=== PATIENT | male | born 1980 | race American Indian/Alaskan Native ===

== ENCOUNTER 2022-06-14 04:02 | Inpatient (IN) | payer MEDICAID ==
[2022-06-14] MEDS ORDERED: Albuterol 0.083% 2.5 MG/3 ML Neb Soln NEB PRN (04:42)
[2022-06-14] MEDS ORDERED: Nicotine 14 MG/24 Hr Patch TRDERM PRN (04:42)
[2022-06-14] MEDS ORDERED: Magnesium Hydroxide 400 MG/5 ML Susp 30 ML Cup PO PRN (04:42)
[2022-06-14] MEDS ORDERED: Ondansetron 4 MG/2 ML SDV IV PRN (04:42)
[2022-06-14] MEDS ORDERED: Ondansetron 4 MG Tab.DIS PO PRN (04:42)
[2022-06-14] MEDS: Sodium Chloride 0.9% 1,000 ML IV SCH ×2 (05:51→17:58)
[2022-06-14] MEDS ORDERED: Piperacillin/Tazobactam 3.375 GM in Sodium Chloride 0.9% 50 ML IV SCH (06:00)
[2022-06-14] MEDS: Insulin Lispro 100 Unit/ML 3 ML KwikPen SUBCUT SCH ×4 (07:12→22:39)
[2022-06-14 09:48] LABS: HEMOGLOBIN A1C 4.9 % (4.5-6.2)
[2022-06-14] MEDS: Enoxaparin 40 MG/0.4 ML Syringe SUBCUT SCH (10:27)
[2022-06-14] MEDS: cefTRIAXone 2 GM in Sodium Chloride 0.9% 50 ML IV SCH (10:27)
[2022-06-14] MEDS: Levofloxacin/Dextrose 5%-Water 750 MG in Premix Bag 1 BAG IV SCH (11:14)
[2022-06-14] MEDS ORDERED: Piperacillin/Tazobactam/Dext 3.375 GM in Premix Bag 1 BAG IV SCH (12:00)
[2022-06-14] MEDS: Acetaminophen 325 MG Tab PO PRN (19:14)
[2022-06-15] MEDS: Acetaminophen 325 MG Tab PO PRN (03:18)
[2022-06-15] MEDS: Sodium Chloride 0.9% 1,000 ML IV SCH (04:29)
[2022-06-15] MEDS: cefTRIAXone 2 GM in Sodium Chloride 0.9% 50 ML IV SCH (09:01)
[2022-06-15] MEDS: Enoxaparin 40 MG/0.4 ML Syringe SUBCUT SCH (09:49)
[2022-06-15] MEDS: Levofloxacin/Dextrose 5%-Water 750 MG in Premix Bag 1 BAG IV SCH (12:14)
[2022-06-15] MEDS: Gabapentin 400 MG Cap PO SCH ×3 (12:14→21:23)
[2022-06-16] MEDS: Gabapentin 400 MG Cap PO SCH ×2 (05:30→09:02)
[2022-06-16] MEDS ORDERED: Levofloxacin 250 MG Tab PO SCH (09:00)
[2022-06-16] MEDS ORDERED: Cefdinir 300 MG Cap PO SCH (09:00)
== END 2022-06-16 17:00 | disposition home or self-care (01) | DRG 193 ==
LOC: JP.MS 04:02
PROVIDERS: ADMIT Hospitalist; ATTEND Internal Medicine
DX: J18.9 Pneumonia, unspecified organism (principal); J96.01 Acute respiratory failure with hypoxia; G89.29 Other chronic pain; M54.9 Dorsalgia, unspecified; F17.210 Nicotine dependence, cigarettes, uncomplicated; Z20.822 Contact with and (suspected) exposure to COVID-19; I10 Essential (primary) hypertension; T40.601A Poisoning by unspecified narcotics, accidental (unintentional), initial encounter; Z79.899 Other long term (current) drug therapy; R73.9 Hyperglycemia, unspecified
CPT/HCPCS: 36415; 80048; 80305-QW; 81001; 82947; 83036; 83605; 85027; 99222; 99232; 99238; A9270-GY; J0696; J1650; J1815; J1956; J2543; J7030